=== PATIENT | female | born 1960 | race Caucasian/White ===

== ENCOUNTER 2021-11-30 12:16 | Emergency (ER) | payer MEDICARE ==
[~2021-11-30] VITALS: Ht 154.9 cm; Wt 59.1 kg
[2021-11-30 12:17] VITALS: BP 127/66
== END 2021-11-30 14:39 | disposition home or self-care (01) ==
LOC: M ED 12:16
DX: S90.31XA Contusion of right foot, initial encounter (principal); X50.9XXA Other and unspecified overexertion or strenuous movements or postures, initial encounter; Y92.018 Other place in single-family (private) house as the place of occurrence of the external cause; Z88.1 Allergy status to other antibiotic agents; Z88.2 Allergy status to sulfonamides; Z88.8 Allergy status to other drugs, medicaments and biological substances; Z87.891 Personal history of nicotine dependence